=== PATIENT | female | born 1975 | race Caucasian/White ===

== ENCOUNTER → 2016-07-22 | Outpatient (CLI) | payer OTHER | LOC: RAD 15:22 | PROVIDERS: ATTEND Specialist | DX: K59.00 Constipation, unspecified (principal); R10.9 Unspecified abdominal pain | CPT/HCPCS: 74000 ==

== ENCOUNTER 2016-08-16 09:25 | Day surgery (SDC) | payer OTHER ==
--- NOTE | 2016-08-09 15:00 | HISTORY AND PHYSICAL E ---
History and Physical NAME: RODDY ESCALERA : 1975 AGE: 41Y ADMITTED: 08/16/2016 ROOM: REASON FOR ADMISSION: Admit for EGD 08/16. CHIEF COMPLAINT: Abdominal pain. HISTORY OF THE PRESENT ILLNESS: The patient presented with abdominal pain, constipation. She is pending referral to [facility] regarding chronic constipation. The patient's ultrasound did show a mass, posterior margin of the right lobe of the liver, most likely hemangioma. Patient did have upper scope in 2016 showing gastritis, esophagitis, duodenitis. Because of abdominal pain patient admitted regarding upper scope. Patient is being evaluated at [facility] because of chronic constipation with no evidence of polyps or malignancy. PAST SURGICAL HISTORY: The patient did have x2, hysterectomy. She did have colon exam showing no polyps, no malignancy. Colon: No polyps, no malignancy. PHYSICAL EXAMINATION: GENERAL: Pleasant, alert, oriented, in no acute distress. VITAL SIGNS: Blood pressure 120/80. Pulse 80. Respirations 18. Temp is 98. HEAD, EYES, EARS, NOSE AND THROAT: Normal. NECK: Supple. LUNGS: Clear. ABDOMEN: Soft. NEUROLOGIC: Negative. MEDICATIONS: Linzess. Topamax. CONCLUSIONS: 1. Abdominal pain. 2. She is referred to [facility] for possibility of evaluation if she is candidate for subtotal colectomy, to be seen by GI and possibly colorectal surgeons at [facility]. PLAN: Meanwhile, will repeat upper scope to evaluate regarding reflux, and patient may need to have repeat ultrasound of her liver for further evaluation of hemangioma. Upper scope 08/16/2016. DICTATING PHYSICIAN: CLAUDINE WHITESIDE M.D. [id number] Y#: [id number] ID: [id number] JOB#: [id number] ACCT: [id number] cc:[facility] CLAUDINE WHITESIDE M.D. >
[~2016-08-16 09:25] MED LIST: EPINEPHRINE INJ 1 MG/10 ML DISP.SYRIN ONE; FENTANYL CITRATE INJ/PF 100 MCG/2 ML AMPUL ONE; FLUMAZENIL INJ 0.5 MG/5 ML VIAL IV ONE; GLYCOPYRROLATE INJ 0.4 MG/2 ML VIAL ONE; MIDAZOLAM 2 MG/2 ML INJ ONE; NALOXONE HCL INJ/PF 0.4 MG/1 ML SDV ONE; ONDANSETRON HCL INJ/PF 4 MG/2 ML SDV ONE; PROMETHAZINE HCL INJ 25 MG/1 ML VIAL ONE
--- NOTE | 2016-08-16 10:54 | OPERATIVE REPORT E ---
Operative Report NAME: RODDY ESCALERA : 1975 AGE: 41Y DATE OF SURGERY: ROOM: PREOPERATIVE DIAGNOSES: The patient is 41 years old. 1. Abdominal pain. 2. Constipation. POSTOPERATIVE DIAGNOSES: 1. Small 2 mm prepyloric gastric ulcer, benign. 2. Esophagitis, mild. 3. Duodenitis, mild. OPERATION: 1. Esophagoscopy. 2. Gastroscopy. 3. Duodenoscopy. SURGEON: CLAUDINE WHITESIDE M.D. ANESTHESIA: Versed 3, fentanyl 100. TISSUE REMOVED OR ALTERED: 1. Gastric biopsy, H. pylori. 2. Duodenal biopsy. PROCEDURE: Baby scope passed under guided vision. No difficulties. Esophagoscopy: Junction at 40, mild esophagitis. Gastroscopy: Prepyloric gastric ulcer, 2 mm biopsy obtained. Duodenoscopy: Duodenal bulb shows prominent mucosa, mild duodenitis, no ulcers. Descending duodenum, normal. Biopsy obtained. Prominent mucosa. DISCHARGE PLAN: 1. Hold aspirin and nonsteroidals 1 week. 2. Awaiting biopsy results. 3. Patient has chronic constipation with Sitz marker positive. Accumulation of the Sitz marker in the sigmoid descending colon. 4. Patient awaiting evaluation at [facility]. 5. Meanwhile, we will continue the Linzess. 6. We will go ahead and repeat her blood count, repeat her thyroid testing. DICTATING PHYSICIAN: CLAUDINE WHITESIDE M.D. [id number] PHY#: [id number] ID: [id number] JOB#: [id number] ACCT: [id number] cc:[facility] CLAUDINE WHITESIDE M.D. >
[2016-08-16 11:13] VITALS: BP 107/68
[2016-08-16 11:27] LABS: ABSOLUTE EOSINOPHILS # (AUTO) 0.1 10^3/uL (0.0-0.6); ABSOLUTE LYMPHOCYTES (AUTO) 1.4 10^3/uL (0.5-4.7); ABSOLUTE MONOCYTES (AUTO) 0.3 10^3/uL (0.1-1.4); ABSOLUTE NEUT (AUTO) 1.9 10^3/uL (1.7-8.2); BASOPHILS % (AUTO) 0.6 % (0-2); EOSINOPHILS % (AUTO) 3.1 % (0-6); HEMATOCRIT 37.7 % (36.0-47.0); HEMOGLOBIN 12.9 g/dL (12.0-15.5); LYMPHOCYTES % (AUTO) 37.2 % (13-45); MEAN CORPUSCULAR HEMOGLOBIN 29.9 pg (27.0-33.4); MEAN CORPUSCULAR HGB CONC 34.2 g/dL (32.0-36.0); MEAN CORPUSCULAR VOLUME 87 fl (80-97); MONOCYTES % (AUTO) 7.8 % (3-13); RED BLOOD COUNT 4.32 10^6/uL (3.72-5.28); RED CELL DISTRIBUTION WIDTH 12.3 % (11.5-14.0); SEGMENTED NEUTROPHILS % (AUTO) 51.3 % (42-78); WHITE BLOOD COUNT 3.7 10^3/uL (4.0-10.5)
[2016-08-16 12:08] LABS: ERYTHROCYTE SEDIMENTATION RATE 8 mm/hr (0-20)
[2016-08-16 12:11] LABS: FREE T3 3.54 pg/mL (2.77-5.27)
[2016-08-16 12:24] LABS: THYROID STIMULATING HORMONE 2.12 uIU/mL (0.47-4.68)
[2016-08-19 08:18] LABS: DEAMIDATED GLIADIN IGA AB 11 units (0-19); DEAMIDATED GLIADIN IGG AB 2 units (0-19); IMMUNOGLOBULIN A 2 155 mg/dL (87-352); T-TRANSGLUTAMINASE (TTG) IGG <2 U/mL (0-5)
== END 2016-08-16 11:15 | disposition home or self-care (01) ==
LOC: END 09:25
PROVIDERS: ATTEND Specialist
PROC: 0DB98ZX Excision of Duodenum, Via Natural or Artificial Opening Endoscopic, Diagnostic (ICD-10-PCS; 2016-08-16)
PROC: 0DB68ZX Excision of Stomach, Via Natural or Artificial Opening Endoscopic, Diagnostic (ICD-10-PCS; principal; 2016-08-16 10:00)
DX: K29.80 Duodenitis without bleeding (principal); K20.9 Esophagitis, unspecified; K25.9 Gastric ulcer, unspecified as acute or chronic, without hemorrhage or perforation; K29.50 Unspecified chronic gastritis without bleeding; K59.09 Other constipation; Z79.899 Other long term (current) drug therapy
CPT/HCPCS: 43239; 86677 ×3; 36415; 84439; 84443; 85025; 85652; 83520 ×5; 84481; 88342 ×2; 88305 ×2; J2250; J3010; J2405; J0171; J2310; J2550; J3490